=== PATIENT | male | born 1970 ===

== ENCOUNTER 2023-08-09 09:39 | Emergency (ER) | payer OTHER, SELFPAY ==
[2023-08-09 10:09] VITALS: BP 137/75
--- NOTE | 2023-08-09 10:39 | ED.GENMED ---
History of Present Illness
<Candice Madden PA-C - Last Filed: 08/10/23 17:17>
General
Chief Complaint: Flank Pain
Source: patient
Exam Limitations: none
Time Seen by Provider: 08/09/23 10:13
Nursing documentation reviewed up to this point in time: agreed with
Travel History
Have you had any contact with someone who has COVID-19?: No
Do you have any symptoms of coronavirus? Fever > 100 degrees, chills, cough, shortness of breath, sore throat, loss of taste or smell, muscle aches, or headache?: No
History of Present Illness
History of Present Illness:
Patient is a 52 year old male presenting for evaluation of lower abdominal pain. Pain has been ongoing for the past 2 to 3 weeks, severity waxes and wanes. Pain is located in the lower abdomen with radiation into the right back. He also endorses
dysuria and urinary frequency with occasional chills at night. No chest pain, shortness of breath, fevers. No vomiting, diarrhea, constipation. Pain is exacerbated with sudden movements. No correlation with pain and eating. Patient has tried
Motrin at home which helps temporarily.
Patient denies any past history of kidney stones. Patient has a history of an appendectomy over 20 years ago.
Patient is sexually active with his .
Phy Exam
<Candice Madden PA-C - Last Filed: 08/10/23 17:17>
Physical Exam
Physical Exam:
General: In mild distress due to pain, non-toxic appearing
Vitals: Vital signs stable, afebrile
HEENT: Atraumatic, normocephalic; pupils equal round and reactive to light bilaterally, sclera nonicteric, protecting airway
Neck: appears supple, no JVD, no meningeal signs
CV: RRR, heart sounds normal, no evidence of cyanosis
Resp: No evidence of respiratory distress, lungs clear bilaterally
Abd: Soft, moderately tender lower abdomen right lower quadrant without rebound or guarding; non-distended, no CVA tenderness
Extremities: No deformities, no evidence of cyanosis or edema
Neuro: alert and oriented x 3; grossly intact
Psych: Normal affect
Skin: Intact no rashes or jaundice
Course
<Candice Madden PA-C - Last Filed: 08/10/23 17:17>
Orders/Labs/Results
Orders:
Orders
08/09/23 10:51
CT Abd/pel Without Iv Or Oral Urgent
Comment:
Reason For Exam: lower abdominal pain with radiation to right back
08/09/23 11:23
Complete Blood Count/With Diff Urgent
Comprehensive Metabolic Panel Urgent
Lipase Urgent
Urinalysis Reflex To Culture Urgent
Date Specimen was Collected: 08/09/23
Time Specimen was Collected: 10:59
Urine Microscopic Reflex Cult Urgent
08/09/23 11:29
Ketorolac [Toradol] 15 mg IV NOW STA
08/09/23 11:50
0.9% Sodium Chloride 1000 ml [Nss] 1,000 ml IV BOLUS
Abnormal Lab Results
08/09/23
11:23
WBC 13.3 H 10^3/uL
(4.8-10.8)
RBC 4.56 L 10^6/uL
(4.70-6.10)
Hct 38.1 L %
(39.0-52.0)
Abs Immat Gran (auto) 0.1 H 10^3/uL
(0-0.05)
Absolute Neuts (auto) 9.5 H 10^3/uL
(1.4-6.5)
Absolute Monos (auto) 1.1 H 10^3/uL
(0.1-0.6)
Lymphocytes % 17.3 L %
(20.5-51.1)
BUN 27 H mg/dl
(9-20)
Creatinine 1.5 H mg/dL
(0.7-1.3)
Ur Occult Blood Reflex 1+ A
(Negative)
08/09/23 11:23
08/09/23 11:23
Vital Signs
Initial and Last Documented VS:
Initial Vital Signs
Temp Pulse Resp BP Pulse Ox
98.7 F 79 18 137/75 97
08/09/23 10:09 08/09/23 10:09 08/09/23 10:09 08/09/23 10:09 08/09/23 10:09
Last Documented Vital Signs
Temp Pulse Resp BP Pulse Ox
98.7 F 77 16 137/69 98
08/09/23 10:09 08/09/23 13:09 08/09/23 13:09 08/09/23 13:09 08/09/23 13:09
<Jey Zabala, DO - Last Filed: 08/09/23 12:45>
Orders/Labs/Results
Orders:
Orders
08/09/23 10:51
CT Abd/pel Without Iv Or Oral Urgent
Comment:
Reason For Exam: lower abdominal pain with radiation to right back
08/09/23 11:23
Complete Blood Count/With Diff Urgent
Comprehensive Metabolic Panel Urgent
Lipase Urgent
Urinalysis Reflex To Culture Urgent
Date Specimen was Collected: 08/09/23
Time Specimen was Collected: 10:59
Urine Microscopic Reflex Cult Urgent
08/09/23 11:29
Ketorolac [Toradol] 15 mg IV NOW STA
08/09/23 11:50
0.9% Sodium Chloride 1000 ml [Nss] 1,000 ml IV BOLUS
Abnormal Lab Results
08/09/23
11:23
WBC 13.3 H 10^3/uL
(4.8-10.8)
RBC 4.56 L 10^6/uL
(4.70-6.10)
Hct 38.1 L %
(39.0-52.0)
Abs Immat Gran (auto) 0.1 H 10^3/uL
(0-0.05)
Absolute Neuts (auto) 9.5 H 10^3/uL
(1.4-6.5)
Absolute Monos (auto) 1.1 H 10^3/uL
(0.1-0.6)
Lymphocytes % 17.3 L %
(20.5-51.1)
BUN 27 H mg/dl
(9-20)
Creatinine 1.5 H mg/dL
(0.7-1.3)
Ur Occult Blood Reflex 1+ A
(Negative)
08/09/23 11:23
08/09/23 11:23
Vital Signs
Initial and Last Documented VS:
Initial Vital Signs
Temp Pulse Resp BP Pulse Ox
98.7 F 79 18 137/75 97
08/09/23 10:09 08/09/23 10:09 08/09/23 10:09 08/09/23 10:09 08/09/23 10:09
Last Documented Vital Signs
Temp Pulse Resp BP Pulse Ox
98.7 F 77 16 137/69 98
08/09/23 10:09 08/09/23 13:09 08/09/23 13:09 08/09/23 13:09 08/09/23 13:09
<Cnadice Madden PA-C - Last Filed: 08/10/23 17:17>
MDM/Problems Addressed
Differential Diagnosis Includes:
Pyelonephritis, nephrolithiasis, UTI, diverticulitis, renal abscess,
MDM/Problems Addressed:
Patient is a 52-year-old male presenting with right-sided flank pain radiating into lower abdomen. Symptoms have been present for the past 2 to 3 weeks, waxing waning in severity. Associated dysuria. Patient is hemodynamically stable, afebrile.
Physical exam as documented above. He is nontoxic-appearing, moderate tenderness in right lower quadrant and suprapubic region. No CVA tenderness. Will check basic labs, lipase, urine. Will check CT abdomen. Will give IV fluids, Toradol for
pain.
CBC with mild leukocytosis of 13.3, otherwise no clinically significant abnormalities. CMP shows mild renal insufficiency. Patient has already received Toradol for pain prior to labs resulting�will avoid further NSAIDs for now. Lipase normal.
Urine shows small amount of blood, otherwise no indication of infection
In to reassess patient�he appears more comfortable and does report some improvement in pain after Toradol.
CT findings show a soft tissue mass in the bladder with high level suspicion for transitional cell carcinoma with associated lymphadenopathy retroperitoneal and within the pelvis. Findings were discussed with patient.
Discussed case with urology, Dr. Jorgensen. They recommend outpatient follow-up tomorrow in office. Patient is comfortable with this plan and pain much improved. Recommend to avoid NSAIDs for now given renal insufficiency. He has made appointment
to follow-up with urology tomorrow outpatient. Return precautions discussed. All questions answered.
Chronic conditions affecting care:
N/A
Acute Exacerbation and/or Progression of Chronic Illness:
N/A
<Candice Madden PA-C - Last Filed: 08/10/23 17:17>
*Radiology
Radiology exam reviewed: preliminary read by ED provider and radiology read reviewed
*Pulse Oximetry
Patient hypoxic: no
*EKG
Interpreted by ED Provider?: NA
*Public Speaker Interpretation
Rate: Public Speaker- N/A
*Critical Care Note
Total Time (30-74mins, 75-104mins- exclusive of procedures): Not Applicable
<Candice Madden PA-C - Last Filed: 08/10/23 17:17>
Patient Management
Discussion with other providers: Web Marketing Intern (Urology)
ED Attending Note
<Candice Madden PA-C - Last Filed: 08/10/23 17:17>
-
Portions of this chart may have been created with voice recognition software.� Occasional wrong word or��sound alike� substitutions may have occurred due to the inherent limitations of voice recognition software.
<Jey Ruiz DO [facility] - Last Filed: 08/09/23 12:45>
ED Attending Note
Patient seen and examined by attending physician: Yes
I performed the substantive portion of visit, reviewed & personally made and approve the management plan that is documented in note by myself or LEE.: Yes
I performed a history and physical exam of patient and discussed management with resident, I reviewed resident's note and agree with documented findings and plan of care.: Yes
ED Attending Note:
I evaluated patient at bedside. The patient appears comfortable. He was given Toradol initially however renal function slightly impaired therefore we will hold off on any further NSAIDs. He does feel improved and has no significant pain.
Joslyn was notified of CT imaging that was abnormal and recommends outpatient follow-up which I feel is reasonable.
Discharge Plan
Departure
Patient Disposition: Home (Routine Discharge)
Date of Disposition: 08/09/23
Time of Disposition: 12:39
Patient with high blood pressure during this ER visit?: Yes
Condition: Good
Covid-19: Not Applicable
Discharge Problem:
Abdominal pain, Right flank pain
Instructions: Flank Pain (DC), Abdominal Pain, Adult ED, BLOOD PRESSURE
Referrals:
Machelle Houston MD [Family Provider] -
Walt Jorgensen MD [Active] - Next open appointment
Activity Restrictions/Additional Instructions:
-Return to the emergency department with any high fevers, severe abdominal pain, intractable nausea/vomiting, signs of severe dehydration, chest pain, shortness of breath, worsening in current symptoms, or any other concerns
-You should call Dr. Jorgensen's office today to schedule appointment for follow-up
-It is important to stay well hydrated
-You can take tylenol as needed for discomfort. You should avoid all NSAID medication (ibuprofen, motrin, naproxen, etc)
Interventions
Interventions:
*Risk Screen - Suicide Last Done: 08/09/23 13:19
*General Assessment Last Done: 08/09/23 13:09
*Neglect/Abuse Screening Last Done: 08/09/23 13:09
ED- Fall Risk Assessment Last Done: 08/09/23 13:09
*ED COVID-19 Vaccine History Last Done: 08/09/23 13:09
*Nursing Disposition Last Done: 08/09/23 13:19
VN-Nbzjyc-Gnlgpmocfe Assessment Last Done: 08/09/23 13:09
ED-Male Genitourinary Assessment Last Done: 08/09/23 13:09
Discharge Date and Time
Discharge Date/Time: 08/09/23 13:19
[2023-08-09 11:35] LABS: % Basophils 0.4 % (0-2); % Eosinophils 1.7 % (0-6); % Immature Granulocytes 0.5 % (0-0.5); % Lymphocytes 17.3 % (20.5-51.1); % Monocytes 8.6 % (1.7-9.3); % Neutrophils 71.5 % (42.2-75.2); Absolute Basophils 0.1 10^3/uL (0-0.2); Absolute Eosinophils 0.2 10^3/uL (0-0.7); Absolute Immature Granulocytes 0.1 10^3/uL (0-0.05); Absolute Lymphocytes 2.3 10^3/uL (1.2-3.4); Absolute Monocytes 1.1 10^3/uL (0.1-0.6); Absolute Neutrophils 9.5 10^3/uL (1.4-6.5); Hematocrit 38.1 % (39.0-52.0); Mean Corp Hgb Conc. 34.1 g/dL (33.0-37.0); Mean Corpuscular Hgb 28.5 pg (27.0-31.0); Mean Corpuscular Volume 83.6 fL (80.0-94.0); Mean Platelet Volume 9.2 fL (7.4-10.4); Nucleated Red Blood Cells % 0 % (-); Platelet Count 356 10^3/uL (130-400); Red Blood Cell Count 4.56 10^6/uL (4.70-6.10); Red Cell Dist. Width 13.1 % (11.5-14.5); White Blood Cell Count 13.3 10^3/uL (4.8-10.8)
[2023-08-09 11:46] LABS: ALT (SGPT) 26 U/L (0-50); AST (SGOT) 29 U/L (17-59); Albumin 4.1 g/dl (3.5-5.0); Alkaline Phosphatase 58 U/L (38-126); Blood Urea Nitrogen 27 mg/dl (9-20); Calcium 9.2 mg/dl (8.4-10.2); Carbon Dioxide 23 mmol/L (22-30); Chloride 106 mmol/L (98-107); Glucose 96 mg/dl (70-99); Lipase 60 U/L (23-300); Potassium 4.1 mmol/L (3.5-5.1); Sodium 135 mmol/L (135-145); Total Bilirubin 0.9 mg/dl (0.2-1.3); Urine Albumin Trace (Neg - Trace); Urine Bilirubin Negative (Negative); Urine Character Clear (Clear); Urine Color Yellow; Urine Glucose Negative (Negative); Urine Ketone Negative (Negative); Urine Leukocyte Negative (Negative); Urine Nitrite Negative (Negative); Urine Occult Blood 1+ (Negative); Urine Urobilinogen Negative (Neg - 1+); eGFR 54.98
[2023-08-09] MEDS: TORADOL 15 MG IV (11:46)
[2023-08-09 11:59] LABS: Urine Hyaline Cast 0-2 /LPF (0-2)
[2023-08-09 12:00] LABS: Urine Red Blood Cell 0-2 /HPF (0-2)
[2023-08-09] MEDS: NSS 1000 IV (12:14)
[2023-08-09 13:09] VITALS: BP 137/69
== END 2023-08-09 13:19 | disposition home or self-care (01) ==
LOC: EMR 09:39
PROVIDERS: Physician Assistant; EMERGENCY PHYSICIAN Emergency Medicine; FAMILY PHYSICIAN Internal Medicine
DX: R10.31 Right lower quadrant pain (principal); M54.9 Dorsalgia, unspecified; R03.0 Elevated blood-pressure reading, without diagnosis of hypertension
CPT/HCPCS: 99284; 96374; 96361; 74176; 80053; 81003; 81015; 83690; 85025

== ENCOUNTER 2023-08-17 06:12 | Day surgery (SDC) | payer OTHER, SELFPAY ==
[2023-08-12 07:52] VITALS: BMI 30.7
[2023-08-12 09:17] LABS: INR 1.07
[2023-08-12 09:18] LABS: APTT 36.4 Sec (23.4-35.0)
[2023-08-17] VITALS (9 sets, daily range): BP systolic 116–136; BP diastolic 77–98; BMI 30.7
[2023-08-17] MEDS: Pyridium 200 MG PO ×2 (07:22→09:01)
[2023-08-17] MEDS: NORMOSOL-R 1000 IV (07:23)
[2023-08-17] MEDS: SUBLIMAZE 25 MCG IV (08:49)
[2023-08-17] MEDS: TORADOL 15 MG IV (09:07)
== END 2023-08-17 10:29 | disposition home or self-care (01) ==
LOC: SDS 06:12
PROVIDERS: ATTENDING PHYSICIAN Urology; FAMILY PHYSICIAN Internal Medicine; OTHER PHYSICIAN Specialist
DX: C79.11 Secondary malignant neoplasm of bladder (principal); C61 Malignant neoplasm of prostate
CPT/HCPCS: 52235; 88307; 36415; 85610; 85730; 88341; 88342; 93005

== ENCOUNTER → 2023-08-23 15:01 | Outpatient (REF) | payer OTHER, SELFPAY | LOC: HWRAD 15:01 | PROVIDERS: ATTENDING PHYSICIAN Urology; FAMILY PHYSICIAN Internal Medicine | DX: D49.4 Neoplasm of unspecified behavior of bladder (principal); R59.0 Localized enlarged lymph nodes; N13.30 Unspecified hydronephrosis | CPT/HCPCS: 71260; 74178; Q9967 ==

== ENCOUNTER → 2023-09-06 10:51 | Outpatient (REF) | payer OTHER, SELFPAY | LOC: RAD 10:51 | PROVIDERS: ATTENDING PHYSICIAN Urology; FAMILY PHYSICIAN Internal Medicine; REFERRING PHYSICIAN Urology | DX: C61 Malignant neoplasm of prostate (principal); D49.4 Neoplasm of unspecified behavior of bladder | CPT/HCPCS: 36415; 78306; A9503 ==

== ENCOUNTER 2023-09-29 14:32 | Emergency (ER) | payer OTHER, SELFPAY ==
[2023-09-29 14:35] VITALS: BP 136/85
[2023-09-29 16:46] VITALS: BP 130/85
--- NOTE | 2023-09-29 16:46 | ED.GENMED ---
History of Present Illness
General
Chief Complaint: DVT/Possible Blood Clot
Source: patient and family
Time Seen by Provider: 09/29/23 15:40
Travel History
Have you had any contact with someone who has COVID-19?: No
Do you have any symptoms of coronavirus? Fever > 100 degrees, chills, cough, shortness of breath, sore throat, loss of taste or smell, muscle aches, or headache?: No
History of Present Illness
History of Present Illness:
52-year-old male with past medical history of bladder cancer/prostate cancer presenting to the emergency department for evaluation of left lower extremity edema that is been ongoing for couple of weeks with patient and family stating that they have
noticed some veins in his legs seem to be a little bit more edematous at nighttime and then are usually resolved in the morning upon awakening. Their biggest concern is that patient has current cancer and is undergoing treatment for this and the
possibility of a DVT. Patient denies any trauma, chest pain, shortness of breath, cough, pleurisy, hemoptysis or any other concerns. No previous history of DVT. Currently not anticoagulated.
Past History
Past History
ED Past Medical History: Cancer and Hyperthyroidism
ED Past Surgical History: Appendectomy
Social History
Tobacco: Smoker
Alcohol: None
Drug: None
Personal:
Living: with family
Review of Systems
Review of Systems
All Other Systems: ROS reviewed and negative except as documented in HPI and ROS
Phy Exam
Physical Exam
Physical Exam:
GENERAL: Alert , in no apparent distress
EYE: conjunctiva clear
Head: Normocephalic atraumatic
NECK: Supple,
ENT: mmm.
LUNGS: no acute respiratory distress
NEUROLOGICAL: Alert and oriented
SKIN: Warm and dry, skin intact.
MUSCULOSKELETAL: Left lower extremity: no obvious edema, there are varicose veins and spider veins throughout the left lower leg. Easily palpable pedal and tibial pulse. Cap refill less than 2 seconds and sensation is grossly intact to light touch.
PSYCH: Normal and appropriate interaction.
Scores
Heart Failure Risk
Heart Failure Risk Score: Not Applicable
Heart Score for Chest Pain Patients
STEMI patient?: Not applicable
Withdrawal Assessment of Alcohol
Withdrawal Assessment Completed?: Not applicable
Course
Orders/Labs/Results
Orders:
Orders
09/29/23 15:40
US Periph Venous LOWER Ext LT Urgent
Comment:
Reason For Exam: edema, hx cancer
Vital Signs
Initial and Last Documented VS:
Initial Vital Signs
Temp Pulse Resp BP Pulse Ox
98.0 F 85 18 136/85 96
09/29/23 14:35 09/29/23 14:35 09/29/23 14:35 09/29/23 14:35 09/29/23 14:35
Last Documented Vital Signs
Temp Pulse Resp BP Pulse Ox
98.0 F 83 18 130/85 99
09/29/23 14:35 09/29/23 16:46 09/29/23 16:46 09/29/23 16:46 09/29/23 16:46
MDM/Problems Addressed
Differential Diagnosis Includes:
DVT, SVT, peripheral vascular disease, venous insufficiency, varicose vein
MDM/Problems Addressed:
52-year-old male present emergency department for evaluation of intermittent left lower extremity edema. Family most concerned for possible DVT given history of cancer. Ultrasound was ordered from triage to rule out DVT and was ultimately negative
for any acute pathologies. I do suspect varicose vein/venous insufficiency to be the most likely diagnosis. Advised patient and family with compression socks as well as will provide with information for vascular surgery to follow-up with as an
outpatient as needed. Otherwise stable for discharge home.
*Radiology
Radiology exam reviewed: radiology read reviewed
*Pulse Oximetry
Patient hypoxic: no
*Critical Care Note
Total Time (30-74mins, 75-104mins- exclusive of procedures): Not Applicable
ED Attending Note
-
Portions of this chart may have been created with voice recognition software.� Occasional wrong word or��sound alike� substitutions may have occurred due to the inherent limitations of voice recognition software.
Discharge Plan
Departure
Patient Disposition: Home (Routine Discharge)
Date of Disposition: 09/29/23
Time of Disposition: 16:47
Patient with high blood pressure during this ER visit?: No
Discharge Problem:
Varicose veins of left lower extremity
Instructions: Varicose Veins (DC)
Prescriptions:
No Action
cholecalciferol (vitamin D3) [Vitamin D3] 125 mcg (5,000 unit) Tablet
125 mcg PO DAILY
Men's Multivitamin 400-20-300 mcg Tablet
1 tab PO DAILY
Tylenol
1,000 mg PO DAILY PRN (Reason: pain)
Referrals:
Amado Berry III, MD [Active] - (Vascular Surgery)
NONE,* [Active] -
Interventions
Interventions:
*Risk Screen - Suicide Last Done: 09/29/23 16:46
*General Assessment Last Done: 09/29/23 14:35
*Neglect/Abuse Screening Last Done: 09/29/23 16:46
ED- Fall Risk Assessment Last Done: 09/29/23 16:26
*ED COVID-19 Vaccine History Last Done: 09/29/23 14:35
*Nursing Disposition Last Done: 09/29/23 16:50
ED- Cardiac Assessment Last Done: 09/29/23 16:26
ED- Pulmonary Assessment Last Done: 09/29/23 16:26
ED-Peripheral Vascular Assessment Last Done: 09/29/23 16:26
ED-Skin Assessment Last Done: 09/29/23 16:26
Discharge Date and Time
Discharge Date/Time: 09/29/23 16:50
Print Language: MONGOLIAN
== END 2023-09-29 16:50 | disposition home or self-care (01) ==
LOC: EMR 14:32
PROVIDERS: EMERGENCY PHYSICIAN Emergency Medicine; FAMILY PHYSICIAN Physician Assistant Medical
DX: I83.92 Asymptomatic varicose veins of left lower extremity (principal); E05.90 Thyrotoxicosis, unspecified without thyrotoxic crisis or storm; F17.200 Nicotine dependence, unspecified, uncomplicated; Z85.51 Personal history of malignant neoplasm of bladder
CPT/HCPCS: 99284; 93971

== ENCOUNTER → 2023-12-23 12:54 | Outpatient (REF) | payer OTHER, SELFPAY | LOC: HWRAD 12:54 | PROVIDERS: ATTENDING PHYSICIAN Physician Assistant Medical | DX: R10.31 Right lower quadrant pain (principal); C61 Malignant neoplasm of prostate | CPT/HCPCS: 74177; Q9967 ==

== ENCOUNTER → 2024-03-08 09:21 | Outpatient (REF) | payer OTHER, SELFPAY | LOC: RAD 09:21 | PROVIDERS: ATTENDING PHYSICIAN Internal Medicine Hematology & Oncology; FAMILY PHYSICIAN Physician Assistant Medical | DX: C61 Malignant neoplasm of prostate (principal); C77.2 Secondary and unspecified malignant neoplasm of intra-abdominal lymph nodes | CPT/HCPCS: 71260; 74177; 78306; A9503; Q9967 ==

== ENCOUNTER → 2024-05-15 13:20 | Outpatient (REF) | payer OTHER, SELFPAY | LOC: PET 13:20 | PROVIDERS: ATTENDING PHYSICIAN Radiology Radiation Oncology | DX: C61 Malignant neoplasm of prostate (principal) | CPT/HCPCS: 78815; A9595 ==

== ENCOUNTER 2024-05-16 06:14 | Outpatient (RCR) | payer OTHER, SELFPAY | END 2024-05-16 23:59 | disposition home or self-care (01) | LOC: RPT 06:14 | PROVIDERS: ATTENDING PHYSICIAN Internal Medicine Hematology & Oncology; FAMILY PHYSICIAN Physician Assistant Medical | DX: C61 Malignant neoplasm of prostate (principal); I89.0 Lymphedema, not elsewhere classified; Z73.6 Limitation of activities due to disability | CPT/HCPCS: 97163; 97530; 97760 ==

== ENCOUNTER 2024-06-02 11:10 | Outpatient (RCR) | payer OTHER, SELFPAY | END 2024-06-02 23:59 | disposition home or self-care (01) | LOC: RPT 11:10 | PROVIDERS: ATTENDING PHYSICIAN Internal Medicine Hematology & Oncology; FAMILY PHYSICIAN Physician Assistant Medical | DX: I89.0 Lymphedema, not elsewhere classified (principal); C61 Malignant neoplasm of prostate; C67.9 Malignant neoplasm of bladder, unspecified; Z73.6 Limitation of activities due to disability; R26.2 Difficulty in walking, not elsewhere classified | CPT/HCPCS: 97110; 97140; 97530; 97763 ==

== ENCOUNTER 2024-06-27 11:11 | Outpatient (RCR) | payer OTHER, SELFPAY | END 2024-06-27 23:59 | disposition home or self-care (01) | LOC: RPT 11:11 | PROVIDERS: ATTENDING PHYSICIAN Internal Medicine Hematology & Oncology; FAMILY PHYSICIAN Physician Assistant Medical | DX: I89.0 Lymphedema, not elsewhere classified (principal); C61 Malignant neoplasm of prostate; C67.9 Malignant neoplasm of bladder, unspecified; Z73.6 Limitation of activities due to disability; R26.2 Difficulty in walking, not elsewhere classified | CPT/HCPCS: 97140; 97530 ==